=== PATIENT | male | born 1970 | race African-American/Black ===

== ENCOUNTER 2017-11-26 09:31 | Emergency (ER) | payer OTHER ==
[2017-11-26] MEDS ORDERED: NA CHLORIDE 0.9% 1,000 ML ONE ×3 (10:11→13:41)
[2017-11-26 10:22] LABS: Absolute Lymphocytes (CBC) 2.4 K/uL (0.7-4.9); Absolute Monocytes 0.5 K/uL (0.1-1.3); Absolute Neutrophil 4.6 K/uL (1.8-8.0); Basophils % 0.6 % (0-1.3); Eosinophils % 0.8 % (0-4.4); Hematocrit 45.8 % (39.6-49.0); Lymphocytes % 32.1 % (15.3-44.8); MCV 91.3 fL (80-100); MPV 9.3 fL (7.6-11.3); Monocytes % 6.6 % (3.3-12.3); RBC Red Blood Cell Count 5.02 M/uL (4.33-5.43)
[2017-11-26 10:27] LABS: Arterial Blood Carboxyhemoglob 0.6 % (0-1.5); Blood O2 Saturation 96.5 % (92-98.5)
[2017-11-26 10:34] LABS: Potassium 4.7 mEq/L (3.6-5.0)
[2017-11-26 10:41] LABS: Albumin 3.9 g/dL (3.2-5.5); Bilirubin Direct 0.1 mg/dL (0-0.2); Bilirubin Total 0.3 mg/dL (0.3-1.2); Protein, Total 7.8 g/dL (6.0-8.3)
--- NOTE | 2017-11-26 11:06 | RAD REPORT ---
EXAM DESCRIPTION: CT - Stone Protocol - 11/26/2017 10:37 am CLINICAL HISTORY: Abdominal pain. Right lower quadrant pain for 5 days COMPARISON: None. TECHNIQUE: Computed axial tomography of the abdomen pelvis was obtained without oral or IV contrast. Lack of IV and oral contrast limits evaluation of solid organs, bowel, and vessels. Coronal reformat mercedes images were obtained and reviewed. All CT scans are performed using dose optimization technique as appropriate and may include automated exposure control or mA/KV adjustment according to patient size. FINDINGS: A renal calculus is not seen. An ureteral calculus is not noted. A bladder calculus is not present. A 28 millimeter low to intermediate density mass extends off of the upper pole of the right kidney. A small left renal cyst is suspected Fatty infiltration liver is present. Mild gallbladder distention Spleen, pancreas and adrenals appear grossly normal There is no evidence of diverticulitis. The appendix appears normal IMPRESSION: Negative for a genitourinary calculus 28 millimeter low to intermediate density mass extending off of the right kidney does not have CT cri teria for simple cyst. Ultrasound is recommended. Mild gallbladder distention. Ultrasound would be helpful
--- NOTE | 2017-11-26 12:18 | EDPHYS ---
Physician Documentation [facility] Name: Balaji Gleason Age: 47 yrs Sex: Male : 1970 Arrival Date: 11/26/2017 Time: 09:34 Bed 20 Private MD: ED Physician Pedro Rosado Historical: - Allergies: 11/26 09:37 Morphine; sv 09:37 Dilaudid; sv - PMHx: 09:37 Hypertension; Borderline DM; Depression; PE; High Cholesterol; GERD; sv - PSHx: 09:37 keloid to left ear; sv - Immunization history:: Adult Immunizations up to date. - Social history:: Smoking status: Patient/guardian denies using tobacco. - Ebola Screening: : No symptoms or risks identified at this time. Exam: 17:00 ECG was reviewed by the Attending Physician. Vital Signs: 09:38 BP 94 / 42; Pulse 57; Resp 16; Temp 98.5; Pulse Ox 93% on R/A; Weight 148.78 kg; Height sv 6 ft. 0 in. (182.88 cm); Pain 8/10; 10:16 BP 97 / 67; Pulse 53; Resp 20; Pulse Ox 96% on 2 lpm NC; mh5 11:45 BP 112 / 70; Pulse 58; Resp 18; Pulse Ox 99% on 2 lpm NC; em 13:16 BP 112 / 67; Pulse 49; Resp 16; Pulse Ox 98% on 2 lpm NC; Pain 0/10; em 14:15 BP 109 / 67; Pulse 52; Resp 16; Pulse Ox 97% on R/A; Pain 0/10; em 09:38 Body Mass Index 44.48 (148.78 kg, 182.88 cm) sv 09:38 Pt placed on O2 \T\ 2L per NC. O2 sat up to 96%. sv MDM: 09:57 Patient medically screened. 14:15 Data reviewed: vital signs, nurses notes. ED course: dr preston has seen and examined wants pt discharged. pt normotensive, encouraged to see pcp and use cpap machine at home. 11/26 10:02 Order name: Basic Metabolic Panel 11/26 10:02 Order name: CBC with Diff; Complete Time: 11:08 11/26 10:02 Order name: Hepatic Function 11/26 10:02 Order name: Lipase; Complete Time: 11:08 11/26 10:02 Order name: Urine Microscopic Only; Complete Time: 14:14 11/26 10:02 Order name: AMMONIA; Complete Time: 11:08 11/26 10:02 Order name: ABG; Complete Time: 11:08 11/26 10:02 Order name: Urine Drug Screen; Complete Time: 14:14 11/26 10:03 Order name: CT Stone Protocol; Complete Time: 11:08 11/26 10:03 Order name: Basic Metabolic Panel; Complete Time: 11:08 EDMS 11/26 10:03 Order name: Liver (Hepatic) Function; Complete Time: 11:08 EDMS 11/26 13:49 Order name: Urine Dipstick--Ancillary (enter results) em1 11/26 13:50 Order name: Urine Dipstick-Ancillary; Complete Time: 14:14 EDMS 11/26 10:02 Order name: IV Saline Lock; Complete Time: 10:14 11/26 10:02 Order name: Labs collected and sent; Complete Time: 10:14 11/26 10:02 Order name: Urine Dipstick-Ancillary (obtain specimen); Complete Time: 13:46 gs EC:00 Rate is 55 beats/min. Rhythm is regular. SC interval is normal. QRS interval is normal. gs QT interval is normal. T waves are Flattened. Clinical impression: NSR w/ Non-specific ST/T Changes. Interpreted by me. Administered Medications: 10:14 Drug: NS 0.9% 1000 ml Route: IV; Rate: 1 bolus; Site: right antecubital; ss 13:15 Follow up: IV Status: Completed infusion; IV Intake: 1000ml em 11:32 Drug: NS 0.9% 1000 ml Route: IV; Rate: 1 bolus; Site: right antecubital; ss 13:16 Follow up: IV Status: Completed infusion; IV Intake: 1000ml em 13:54 Drug: NS 0.9% 1000 ml Route: IV; Rate: 1 bolus; Site: right antecubital; em 14:57 Follow up: IV Status: Completed infusion; IV Intake: 1000ml em Disposition: 11/26/17 14:17 Discharged to Home. Impression: Lower abdominal pain, unspecified, Sleep apnea. - Condition is Stable. - Discharge Instructions: Abdominal Pain, Adult. - Medication Reconciliation Form, Thank You Letter, Antibiotic Education, Prescription Opioid Use, Work release form form. - Follow up: Private Physician; When: 1 - 2 days; Reason: Re-evaluation by your physician. Addendum: 11/30/2017 15:52 Addendum: CC: Flank Pain HPI:Onset 2 days ago worse persistent , located Right Flank g s Associated SS- nausea, weakness, very tired and sleepy. Nothing makes worse or better. Has had in past. PMH: reviewed and agree Soc- ROS-all reviewed and negative PE- gen-awake alert head - atraumatic, no mass Neck-supple no mass ENT- op moist no erythema CV-s gopal no murmur P- lungs clear no increase WOB gi- soft nontender + CVA tender Skin no rash Neuro - sleepy CN,motor,sensory intact and normal DDX-stone, pyleo, sleep apnea, medication reaction, encephalopathy. much better seen by medicine will discharge instead of admit pt stable. Signatures: Dispatcher [employer] Diana Tavarez RN RN sv Jose Gould, ELECTRONIC TESTER ELECTRONIC TESTER Bhargavi Martinez RN RN ss Starr, Gregory, MD MD Corrections: (The following items were deleted from the chart) 11/26 14:15 12:17 Hospitalization Ordered by Eloina Preston MD for Inpatient Admission. Preliminary gs diagnosis is Hypotension due to drugs; Sleep apnea, unspecified. Bed requested for Telemetry/MedSurg (Inpatient). Status is Inpatient Admission. Condition is Stable. Problem is new. Symptoms have improved. UTI on Admission? No. gs 15:03 14:17 11/26/2017 14:17 Discharged to Home. Impression: Lower abdominal pain, em unspecified; Sleep apnea. Condition is Stable. Forms are Medication Reconciliation Form, Thank You Letter, Antibiotic Education, Prescription Opioid Use. Follow up: Private Physician; When: 1 - 2 days; Reason: Re-evaluation by your physician. gs
--- NOTE | 2017-11-26 12:18 | ER ---
Nurse's Notes [facility] Name: Balaji Gleason Age: 47 yrs Sex: Male : 1970 Arrival Date: 11/26/2017 Time: 09:34 Bed 20 Private MD: Diagnosis: Lower abdominal pain, unspecified;Sleep apnea Presentation: 11/26 09:35 Presenting complaint: Patient states: RLQ pain, n/v, diaphoretic started 5 days ago. sv Was seen in [place] [facility], CT, labs and medication given. Pt appears drowsy. Transition of care: patient was not received from another setting of care. Onset of symptoms was November 21, 2017. Risk Assessment: Do you want to hurt yourself or someone else? Patient reports no desire to harm self or others. Care prior to arrival: None. 09:35 Method Of Arrival: Wheelchair sv 09:35 Acuity: SHAGGY 2 sv 13:14 Initial Sepsis Screen: Does the patient meet any 2 criteria? No. Patient's initial em sepsis screen is negative. Does the patient have a suspected source of infection? No. Patient's initial sepsis screen is negative. Historical: - Allergies: 09:37 Morphine; sv 09:37 Dilaudid; sv - PMHx: 09:37 Hypertension; Borderline DM; Depression; PE; High Cholesterol; GERD; sv - PSHx: 09:37 keloid to left ear; sv - Immunization history:: Adult Immunizations up to date. - Social history:: Smoking status: Patient/guardian denies using tobacco. - Ebola Screening: : No symptoms or risks identified at this time. Screenin:15 Abuse screen: Denies threats or abuse. Denies injuries from another. Nutritional ss screening: No deficits noted. Tuberculosis screening: Never had TB. Fall Risk No fall in past 12 months (0 pts). Secondary diagnosis (15 points) fatigue. IV access (20 points). Gait- Normal/Bed Rest/Wheelchair (0 pts) Mental Status- Oriented to own ability (0 pts). Assessment: 10:15 General: Appears comfortable, drowsy. Behavior is cooperative, quiet, Reports fatigue ss for x 5 days. . Denies fever, chills, Seen for similar symptoms at [facility] 5 days ago, and was discharged home with unspecified abd pain. . Pain: Complains of pain in right lower quadrant Pain currently is 8 out of 10 on a pain scale. Quality of pain is described as tender, Pain began 5 days ago Is intermittent, Aggravated by increased activity, repositioning. Neuro: Level of Consciousness is awake, obeys commands, drowsy. Cardiovascular: Capillary refill < 3 seconds is brisk in bilateral fingers Patient's skin is warm and dry. Pulses are palpable in right radial artery, right dorsalis pedis artery, left radial artery and left dorsalis pedis artery Edema is absent. Rhythm is sinus bradycardia. Respiratory: Airway is patent Trachea midline Respiratory effort is even, unlabored, Respiratory pattern is regular, symmetrical, Breath sounds are clear bilaterally. GI: Reports lower abdominal pain, Patient currently denies bloody stool, diarrhea, nausea, vomiting. : Reports urinary frequency, Denies burning with urination, inability to void. EENT: Nares are clear Oral mucosa is moist. Derm: Skin is intact, is healthy with good turgor, Skin is dry, Skin is pink, warm \T\ dry. normal. Musculoskeletal: Circulation, motion, and sensation intact. Capillary refill < 3 seconds, is brisk, in bilateral fingers. Range of motion: intact in all extremities, Swelling absent. 10:58 Reassessment: Patient appears in no apparent distress at this time. family and friends ss at bedside. Pt has been to CT scan, awaiting results. 12:36 Reassessment: Dr. Garnett at bedside, updating patient on POC. ss 13:14 Reassessment: Patient appears in no apparent distress at this time. Patient and/or em family updated on plan of care and expected duration. Pain level reassessed. Patient is alert, oriented x 3, equal unlabored respirations, skin warm/dry/pink. 14:15 Reassessment: Patient appears in no apparent distress at this time. Patient and/or em family updated on plan of care and expected duration. Pain level reassessed. Patient is alert, oriented x 3, equal unlabored respirations, skin warm/dry/pink. Patient denies pain at this time. Patient states feeling better. Vital Signs: 09:38 BP 94 / 42; Pulse 57; Resp 16; Temp 98.5; Pulse Ox 93% on R/A; Weight 148.78 kg; Height sv 6 ft. 0 in. (182.88 cm); Pain 8/10; 10:16 BP 97 / 67; Pulse 53; Resp 20; Pulse Ox 96% on 2 lpm NC; mh5 11:45 BP 112 / 70; Pulse 58; Resp 18; Pulse Ox 99% on 2 lpm NC; em 13:16 BP 112 / 67; Pulse 49; Resp 16; Pulse Ox 98% on 2 lpm NC; Pain 0/10; em 14:15 BP 109 / 67; Pulse 52; Resp 16; Pulse Ox 97% on R/A; Pain 0/10; em 09:38 Body Mass Index 44.48 (148.78 kg, 182.88 cm) sv 09:38 Pt placed on O2 \T\ 2L per NC. O2 sat up to 96%. sv ED Course: 09:34 Patient arrived in ED. sb2 09:36 Triage completed. sv 09:40 Arm band placed on right wrist. Patient placed in an exam room, on a stretcher, on sv oxygen. 09:47 Pedro Rosado MD is Attending Physician. gs 09:59 EKG done, by ED staff, reviewed by Pedro Rosado MD. mh5 10:01 Patient has correct armband on for positive identification. Placed in gown. Bed in low mh5 position. Call light in reach. Side rails up X 1. Adult w/ patient. Warm blanket given. phototypesetting equipment monitor on. Pulse ox on. NIBP on. 10:06 Inserted saline lock: 20 gauge in right antecubital area, using aseptic technique. ss Blood collected. 10:14 Jose Gould LVN is Primary Nurse. em 10:37 CT completed. Patient moved to CT via stretcher. Patient moved back from CT. cw1 10:37 CT Stone Protocol In Process Unspecified. EDMS 12:16 Eloina Garnett MD is Hospitalizing Provider. gs 13:14 No provider procedures requiring assistance completed. em 13:51 Urine Drug Screen Sent. mh5 15:00 IV discontinued, intact, bleeding controlled, No redness/swelling at site. Pressure em dressing applied. Administered Medications: 10:14 Drug: NS 0.9% 1000 ml Route: IV; Rate: 1 bolus; Site: right antecubital; ss 13:15 Follow up: IV Status: Completed infusion; IV Intake: 1000ml em 11:32 Drug: NS 0.9% 1000 ml Route: IV; Rate: 1 bolus; Site: right antecubital; ss 13:16 Follow up: IV Status: Completed infusion; IV Intake: 1000ml em 13:54 Drug: NS 0.9% 1000 ml Route: IV; Rate: 1 bolus; Site: right antecubital; em 14:57 Follow up: IV Status: Completed infusion; IV Intake: 1000ml em Intake: 13:15 IV: 1000ml; Total: 1000ml. em 13:16 IV: 1000ml; Total: 2000ml. em 14:57 IV: 1000ml; Total: 3000ml. em Outcome: 12:17 Decision to Hospitalize by Provider. gs 14:17 Discharge ordered by MD. gs 15:00 Discharged to home ambulatory. em 15:00 Condition: good 15:00 Discharge instructions given to patient, Instructed on discharge instructions, follow up and referral plans. Demonstrated understanding of instructions, follow-up care. 15:03 Patient left the ED. em Signatures: Dispatcher [employer] Diana Tavarez RN RN Jose Gould, SOLAR INSTALLATION MANAGER SOLAR INSTALLATION MANAGER em Bhargavi Falcon RN RN ss Woodley, Crystal 1 Gracy Canas 5 Pedro Rosado MD MD gs Billeau, Sheri sb2 Corrections: (The following items were deleted from the chart) 09:38 09:35 Acuity: SHAGGY 3 sv sv 09:48 09:35 Presenting complaint: Patient states: RLQ pain, n/v, diaphoretic started 5 days sv ago. Was seen in [place] [facility], CT, labs and medication given. sv
[2017-11-26 13:50] LABS: Urine Blood NEGATIVE (NEG); Urine Glucose NEGATIVE (NEG); Urine Protein 2+ (NEG); Urine Specific Gravity >1.030 (1.005-1.030); Urine pH 5.5 (5.0-7.0)
[2017-11-26 13:51] LABS: Urine Bacteria <20 /HPF (NONE SEEN); Urine Culture Reflex Order NOT NEEDED; Urine Mucus 2+ /HPF (NONE SEEN); Urine RBC <5 /HPF (NONE SEEN)
[2017-11-26 13:52] LABS: Barbiturates NEGATIVE; Benzodiazepines NEGATIVE; Cocaine NEGATIVE; METHAMPHETAM NEGATIVE (NEGATIVE); Opiates NEGATIVE; Phencyclidine NEGATIVE; THC Cannibis NEGATIVE
--- NOTE | 2017-11-27 07:38 | EKG ---
Test Date: 2017-11-26 Test Time: 09:56:09 [place] Consultant: DANIELLE MEASUREMENT RESULTS: Intervals: Rate: 55 AR: 184 QRSD: 96 QT: 410 QTc: 392 [place]: P: 9 AR: 184 QRS: 31 T: 19 INTERPRETIVE STATEMENTS: Sinus bradycardia with occasional premature supraventricular complexes Nonspecific ST abnormality Abnormal ECG No previous ECG available for comparison Electronically Signed On 11-27-17 07:37:46 CDT by Romeo Patel
== END 2017-11-26 15:03 | disposition home or self-care (01) ==
LOC: ER 09:31 → ERHOLD 12:17 → UNDOADMIN 12:17
DX: R10.30 Lower abdominal pain, unspecified (principal); G47.30 Sleep apnea, unspecified; I10 Essential (primary) hypertension; Z88.5 Allergy status to narcotic agent; Z88.6 Allergy status to analgesic agent
CPT/HCPCS: 36415; 74176; 76377; 80048; 80076; 80307; 81003; 81015; 82140; 82805; 83690; 85025; 93005; 96360; 96361; 99285; J7030

== ENCOUNTER 2018-01-07 08:09 | Observation (INO) | payer OTHER ==
--- OUTSIDE RECORDS SUMMARY | 2018-01-07 08:11 | XMS REPORT | Clinical Summary ---
:1970 Author Organization [facility] Address [address] [place] [address] Care Team Providers Name Role Phone Luis Manuel Alfredo DO Primary Care Provider Allergies Active Allergy Reactions Severity Noted Date Comments Milk Diarrhea, GI Intolerance, Other (See Comments) Morphine 11/30/2015 Current Medications Prescription Sig. Disp. Refills Start Date End Date Status ALPRAZolam (XANAX) 01/05/2016 Active 0.25 MG tablet amlodipine-benazepri 01/20/2016 Active l (LOTREL) 10-40 mg per capsule carvedilol (COREG) 01/03/2016 Active 12.5 MG tablet clonIDINE (CATAPRES) 01/03/2016 Active 0.1 MG tablet FLUoxetine (PROzac) 01/22/2016 Active 40 MG capsule XARELTO tablet 01/20/2016 Active clonIDINE HCl 04/06/2016 Active (CATAPRES) 0.2 MG tablet nitroglycerin 05/14/2016 Active (NITROSTAT) 0.4 MG SL tablet traMADol (ULTRAM) 50 04/06/2016 Active mg tablet FOLIC ACID ORAL Take 2 mg by Active mouth. busPIRone (BUSPAR) Take 15 mg by Active 15 MG tablet mouth 3 (three) times a day. gemfibrozil (LOPID) Take 1 tablet 05/29/2017 Active 600 MG tablet by mouth daily. omeprazole Take 1 05/29/2017 Active (PriLOSEC) 20 MG capsule by capsule mouth daily. folic acid (FOLVITE) 06/28/2017 Active 1 MG tablet ATRIPLA 600-200-300 Take 1 tablet 90 tablet 3 09/01/2017 09/01/2018 Active mg per tablet by mouth nightly. AFLURIA [id number], 03/11/2016 06/06/2017 Discontinued PF, 45 mcg (15 mcg x 3)/0.5 mL syringe PNEUMOVAX 23 25 03/11/2016 06/06/2017 Discontinued mcg/0.5 mL syringe vaccine ATRIPLA 600-200-300 Take 1 tablet 90 tablet 3 08/10/2016 08/31/2017 Discontinued mg per tablet by mouth nightly. 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 06/06/2017 Hospital Encounter Gastroenterology Tripp Donahue MD 06/06/2017 Procedure Pass Gastroenterology 06/06/2017 Surgery Gastroenterology Godfrey, COLONOSCOPY Tripp Davis MD 06/05/2017 Anesthesia Event Gastroenterology Dagmar Grace FNP after 01/06/2017 Family History Medical History Relation Name Comments Cancer Maternal Grandfather Cancer Mother Relation Name Status Comments Maternal Grandfather Mother Social History Tobacco Use Types Packs/Day Years Used Date Never Smoker Smokeless Tobacco: Never Used Alcohol Use Drinks/Week oz/Week Comments Yes OCCASIONAL Sex Assigned at Date Recorded Not on file Last Filed Vital Signs Vital Sign Reading Time Taken Blood Pressure 138/72 07/18/2017 10:44 AM [employer]ALENT MANAGER Pulse 64 07/18/2017 10:44 AM [employer] TALENT MANAGER Temperature 36.1 C (97 F) 07/18/2017 10:44 AM HUMAN [employer]OURCES TALENT MANAGER Respiratory Rate 14 06/06/2017 9:58 AM HUM[employer]OURCES TALENT MANAGER Oxygen Saturation 97% 07/18/2017 10:44 AM HUMAN [employer]OURCES TALENT MANAGER Inhaled Oxygen Concentration - - Weight 146 kg (322 lb) 07/18/2017 10:44 AM HUM[employer]OURCES TALENT MANAGER Height 185.4 cm (6' 1") 06/06/2017 6:43 AM HUM[employer]OURCES TALENT MANAGER Body Mass Index 42.48 07/18/2017 10:44 AM HUMAN [employer]OURCES TALENT MANAGER Plan of Treatment Date Type Specialty Care Team Description 01/16/2018 Office Visit Infectious Diseases Josefa Uribe MD [address] [place] [address] Health Maintenance Due Date Last Done Comments DIABETIC FOOT EXAM 1982 DIABETIC RETINAL EYE EXAM 1982 INFLUENZA VACCINE 01/24/2018 Procedures Procedure Name Priority Date/Time Associated Diagnosis Comments HELPER T-LYMPHOCYTE Routine 12/28/2017 12:48 Results for this CD4 PM CDT procedure are in the results section. HIV 1 RNA, Routine 12/28/2017 12:48 Human immunodeficiency Results for this QUANTITATIVE REAL PM CDT virus I infection procedure are in TIME PCR skilled nursing use of drug the results section. 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 COMPREHENSIVE Routine 12/28/2017 12:48 Human immunodeficiency Results for this METABOLIC PANEL PM CDT virus I infection procedure are in skilled nursing use of drug the results section. HIV 1 RNA, Routine 08/21/2017 10:58 Human immunodeficiency Results for this QUANTITATIVE REAL AM HUMAN [employer]OURCES TALENT MANAGER virus I infection procedure are in TIME PCR the results section. HELPER T-LYMPHOCYTE Routine 07/05/2017 12:00 Results for this CD4 AM HUM[employer] TALENT MANAGER procedure are in the results section. 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 COLONOSCOPY 06/06/2017 8:30 Colon cancer screening AM H[employer] TALENT MANAGER ECG 12-LEAD STAT 06/06/2017 7:26 Results for this AM HUM[employer]OURCES TALENT MANAGER procedure are in the results section. POC GLUCOSE Routine 06/06/2017 6:54 Results for this AM HUM[employer] TALENT MANAGER procedure are in the results section. after 01/06/2017 Results [place] T-Lymphocyte CD4 (12/28/2017 12:48 PM)Only the most recent of2 resultswithin the time period is included. CD4 absolute count 826 359 - 1,519 /uL [facility] CD4% 30.6 (L) 30.8 - 58.5 % [facility] WBC 6.5 3.4 - 10.8 x10E3/uL [facility] RBC 4.98 4.14 - 5.80 x10E6/uL [facility] HGB 14.1 13.0 - 17.7 g/dL [facility] HCT 46.7 37.5 - 51.0 % [facility] MCV 94 79 - 97 fL [facility] MCH 28.3 26.6 - 33.0 pg [facility] MCHC 30.2 (L) 31.5 - 35.7 g/dL [facility] RDW 13.4 12.3 - 15.4 % [facility] Platelet count 222 150 - 379 x10E3/uL [facility] Neutrophils 52 Not Estab. % [facility] Lymphocytes 41 Not Estab. % [facility] Monocytes 6 Not Estab. % [facility] Eosinophils 1 Not Estab. % [facility] Basophils 0 Not Estab. % [facility] Neutrophils, absolute 3.4 1.4 - 7.0 x10E3/uL [facility] Lymphocytes, absolute 2.7 0.7 - 3.1 x10E3/uL [facility] Monocytes, absolute 0.4 0.1 - 0.9 x10E3/uL [facility] Eosinophils, absolute 0.1 0.0 - 0.4 x10E3/uL [facility] Basophils, absolute 0.0 0.0 - 0.2 x10E3/uL [facility] Immature granulocytes 0 Not Estab. % [facility] Immature grans (abs) 0.0 0.0 - 0.1 x10E3/uL [facility] Narrative Performed At Performed at: - [facility] [address] [facility], [id number] Supervisor [employer]intering Plant: Christiano Brothers MD, Phone:[phone] Performing Organization Address City/State/Zipcode Phone Number [facility] HIV 1 RNA, QUANTITATIVE REAL TIME PCR (12/28/2017 12:48 PM)Only the most recent of3 resultswithin the time period is included. HIV-1 RNA by PCR, Qn <20 copies/mL [facility] Comment: HIV-1 RNA not detected The reportable range for this assay is 20 to 10,000,000 copies HIV-1 RNA/mL. HIV-1 RNA viral load log CANCELED [id number]/mL [facility] Comment: Unable to calculate result since non-numeric result obtained for component test. Result canceled by the ancillary Narrative Performed At Performed at:01 - [facility] [address] [place], [id number] Supervisor [employer]: Sahil Silvestre MD, Phone:[phone] Performing Organization Address [place] [place] Number [facility] Lipid panel (12/28/2017 12:48 PM)Only the most recent of2 resultswithin the time period is included. Cholesterol 143 100 - 199 mg/dL [facility] Triglycerides 55 0 - 149 mg/dL [facility] HDL cholesterol 18 (L) >39 mg/dL [facility] VLDL cholesterol mohan 11 5 - 40 mg/dL [facility] LDL cholesterol calculated 114 (H) 0 - 99 mg/dL [facility] Non-HDL cholesterol 125 0 - 129 mg/dL [facility] Specimen Blood Narrative Performed At Performed at:01 - [facility] [address] [place], [id number] Supervisor [employer]intering Plant: Christiano Brothers MD, Phone:[phone] Performing Organization Address [facility] [place] Phone Number [facility] Comprehensive metabolic panel (12/28/2017 12:48 PM)Only the most recent of2 resultswithin the time period is included. Glucose 93 65 - 99 mg/dL [facility] BUN, whole blood 12 6 - 24 mg/dL [facility] Creatinine 1.01 0.76 - 1.27 mg/dL [facility] EGFR Non-Afr. Chinese 89 >59 mL/min/1.73 [facility] EGFR 103 >59 mL/min/1.73 [facility] BUN/creatinine ratio 12 9 - 20 [facility] Sodium 143 134 - 144 mmol/L [facility] Potassium 4.2 3.5 - 5.2 mmol/L [facility] Chloride 105 96 - 106 mmol/L [facility] CO2 23Comment: 20 - 29 mmol/L [facility] Please note reference interval change Calcium 9.3 8.7 - 10.2 mg/dL [facility] Protein 7.7 6.0 - 8.5 g/dL [facility] Albumin, S 4.5 3.5 - 5.5 g/dL [facility] Globulin, total 3.2 1.5 - 4.5 g/dL [facility] Albumin/globulin ratio 1.4 1.2 - 2.2 [facility] Total bilirubin 0.2 0.0 - 1.2 mg/dL [facility] Alkaline phosphatase 88 39 - 117 IU/L [facility] AST 22 0 - 40 IU/L [facility] ALT 23 0 - 44 IU/L [facility] Specimen Blood Narrative Performed At Performed at:01 - [facility] [address] [place], [id number] Supervisor [employer]intering Plant: Christiano Brothers MD, Phone:[phone] Performing Organization Address [facility] Phone Number [facility] ECG 12 lead (06/06/2017 7:26 AM) Ventricular rate 63 [facility] Atrial rate 63 [facility] OH interval 168 [facility] QRSD interval 86 [facility] QT interval 432 [facility] QTC interval 442 [facility] P axis 1 32 [facility] QRS axis 1 40 [facility] T wave axis 68 [facility] EKG impression Sinus rhythm with occasional premature ventricular complexes- RSR' or QR pattern in V1 suggests right ventricular conduction delay- Nonspecific ST and T wave abnormality-Abnormal ECG-No previous ECGs avai [facility] MUSE lable- Performing Organization Address City/[facility] Phone Number [facility] MUSE [address] [place] [address] POC glucose (06/06/2017 6:54 AM) POC glucose 84 65 - 99 mg/dL [facility] DEPARTMENT OF PATHOLOGY Comment: AND GENOMIC MEDICINE Meter ID: [id number] [employer] Specialist: Maryann Aleman Performing Organization Address City/State/Zipcode Phone Number [facility] DEPARTMENT OF PATHOLOGY [address] [place] [address] AND GENOMIC MEDICINE after 01/06/2017 Insurance Payer Benefit Plan / Group Subscriber ID Type Phone Address [facility] CHOICE/CHOICE + xxxxxxxxx HMO/PPO AND [phone] [place] [address]
[2018-01-07] MEDS ORDERED: ASPIRIN 81 MG CHEWABLE TABLET ONE (08:40)
[2018-01-07] MEDS ORDERED: ONDANSETRON 4 MG/2 ML VIAL ONE ×2 (08:40→09:48)
[2018-01-07 08:42] LABS: Absolute Lymphocytes (CBC) 3.1 K/uL (0.7-4.9); Absolute Monocytes 0.6 K/uL (0.1-1.3); Basophils % 0.6 % (0-1.3); Eosinophils % 1.2 % (0-4.4); Hematocrit 44.2 % (39.6-49.0); Lymphocytes % 34.5 % (15.3-44.8); MCH 29.4 pg (27.0-35.0); MCV 91.1 fL (80-100); MPV 8.9 fL (7.6-11.3); Monocytes % 6.9 % (3.3-12.3); RBC Red Blood Cell Count 4.85 M/uL (4.33-5.43)
[2018-01-07] MEDS ORDERED: IBUPROFEN 400 MG TAB ONE (08:45)
[2018-01-07 08:48] LABS: Protime INR 1.07
[2018-01-07 09:07] LABS: ALT/SGPT 31 U/L (12-78); AST/SGOT 21 U/L (15-37); Albumin 3.7 g/dL (3.4-5.0); Alkaline Phosphatase 97 U/L (45-117); BUN Blood Urea Nitrogen 17 mg/dL (7-18); Bicarbonate 29 mmol/L (21-32); Bilirubin Direct < 0.1 mg/dL (0-0.2); Bilirubin Total 0.1 mg/dL (0.2-1.0); CKMB Creatine Kinase MB 4.6 ng/mL (0.3-3.6); Glucose Level 143 mg/dL (74-106); Magnesium 2.1 mg/dL (1.8-2.4); NT PRO-BNP 50 pg/mL (<125); Potassium 3.6 mmol/L (3.5-5.1); Protein, Total 8.3 g/dL (6.4-8.2); Sodium Level 143 mmol/L (136-145)
[2018-01-07] MEDS ORDERED: KETOROLAC 30 MG/ML INJ ONE (09:48)
--- NOTE | 2018-01-07 09:58 | ER ---
Nurse's Notes [facility] Name: Balaji Elam Age: 47 yrs Sex: Male : 1970 Arrival Date: 01/07/2018 Time: 08:11 Bed 4 Private MD: Diagnosis: Chest pain, unspecified Presentation: 01/07 08:14 Presenting complaint: Patient states: chest tightness and shortness of breath that ss began when patient got off of work yesterday. Transition of care: patient was not received from another setting of care. Onset of symptoms was January 06, 2018. Risk Assessment: Do you want to hurt yourself or someone else? Patient reports no desire to harm self or others. Initial Sepsis Screen: Does the patient meet any 2 criteria? RR > 20 per min. Does the patient have a suspected source of infection? No. Patient's initial sepsis screen is negative. Care prior to arrival: None. 08:14 Method Of Arrival: Ambulatory 08:14 Acuity: SHAGGY 3 ss Historical: - Allergies: 08:16 Dilaudid; ss 08:16 Morphine; ss - Home Meds: 10:55 tramadol 50 mg Oral tab 1 tab every 6 hours [Active]; Xarelto 20 mg oral tab 1 tab once ph daily [Active]; fluoxetine 40 mg Oral cap 1 cap once daily [Active]; clonidine HCl 0.2 mg Oral tab 1 tab 2 times per day [Active]; gemfibrozil 600 mg Oral tab 1 tab 2 times per day [Active]; Lotrel 10-40 mg Oral cap 1 cap once daily [Active]; carvedilol 12.5 mg oral tab 1 tab 2 times per day [Active]; omeprazole 20 mg Oral cpDR 1 cap once daily [Active]; ziprasidone HCl 40 mg oral cap 1 cap nightly [Active]; alprazolam 0.25 mg Oral tab 1 tab nightly [Active]; folic acid 2mg Oral tab [Active]; buspirone 15 mg Oral tab 1 tab three times a day [Active]; - PMHx: 08:16 borderline DM; Depression; GERD; High Cholesterol; Hypertension; PE; ss - PSHx: 08:16 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 - Social history:: Smoking status: Patient uses tobacco products, "I vape for the taste, but not for nicotine" , Patient/guardian denies using alcohol, street drugs, The patient lives with family, . - Ebola Screening: : Patient denies exposure to infectious person Patient denies travel to an Ebola-affected area in the 21 days before illness onset. - Family history:: not pertinent. Screenin:48 Abuse screen: Denies threats or abuse. Denies injuries from another. Nutritional ph screening: No deficits noted. Tuberculosis screening: No symptoms or risk factors identified. Fall Risk None identified. Assessment: 08:50 General: Appears in no apparent distress. uncomfortable, obese, well groomed, Behavior ph is cooperative, appropriate for age, anxious, Denies fever, feeling ill. Pain: Complains of pain in mid-sternal area Pain does not radiate. Pain currently is 6 out of 10 on a pain scale. Quality of pain is described as pressure, Pain began "last night". Neuro: Level of Consciousness is awake, alert, obeys commands, Oriented to person, place, time, situation, Reports headache frontal area, Denies weakness dizziness. Cardiovascular: Reports chest pain, nausea, shortness of breath, Denies palpitations, syncope, vomiting, Capillary refill < 3 seconds in bilateral fingers Patient's skin is warm and dry. Rhythm is sinus rhythm with unifocal PVCs Chest pain quality is pressure, is located in substernal area. Respiratory: Reports shortness of breath at rest Airway is patent Respiratory effort is even, unlabored, Respiratory pattern is tachypnea Breath sounds are clear bilaterally. Denies cough. GI: Reports nausea, Patient currently denies abdominal pain, vomiting. Derm: Skin is intact, is healthy with good turgor, Skin is pink, warm \\T\\ dry. Musculoskeletal: Circulation, motion, and sensation intact. Range of motion: intact in all extremities. 09:45 Reassessment: Patient appears in no apparent distress at this time. Patient and/or ph family updated on plan of care and expected duration. Pain level reassessed. Patient is alert, oriented x 3, equal unlabored respirations, skin warm/dry/pink. 10:43 Reassessment: Patient appears in no apparent distress at this time. Patient and/or ph family updated on plan of care and expected duration. Pain level reassessed. Patient is alert, oriented x 3, equal unlabored respirations, skin warm/dry/pink. Pt resting quietly, awaiting room assignment, VSS. Vital Signs: 08:16 BP 170 / 114; Pulse 77; Resp 21; Temp 97.9(O); Pulse Ox 99% on R/A; Weight 142.43 kg; ss Height 6 ft. 0 in. (182.88 cm); Pain 6/10; 08:48 BP 166 / 101; Pulse 71; Resp 18; Pulse Ox 96% on R/A; Pain 6/10; ph 09:22 BP 148 / 93; Pulse 69; Resp 24; Pulse Ox 100% ; sv 10:40 BP 129 / 90; Pulse 59; Resp 18; Pulse Ox 98% on R/A; ph 08:16 Body Mass Index 42.59 (142.43 kg, 182.88 cm) ED Course: 08:11 Patient arrived in ED. ss 08:12 Shania Bradley MD is Attending Physician. ma2 08:16 Triage completed. ss 08:16 Arm band placed on right wrist. ss 08:30 Initial lab(s) drawn, by ok, sent to lab. Inserted saline lock: 22 gauge in right ph antecubital area, using aseptic technique. Blood collected. 08:34 Micaela Negro, RN is Primary Nurse. ph 08:55 Patient has correct armband on for positive identification. Placed in gown. Bed in low ph position. Call light in reach. Side rails up X 1. conveyor monitor on. Pulse ox on. NIBP on. Warm blanket given. 09:01 XRAY Chest (1 view) In Process Unspecified. EDMS 09:53 No provider procedures requiring assistance completed. ph 09:58 Eloina Garnett MD is Hospitalizing Provider. ma2 15:57 Patient admitted, IV remains in place. ph Administered Medications: 08:46 Drug: Aspirin 325 mg Route: PO; ph 10:42 Follow up: Response: No adverse reaction ph 08:47 Drug: Zofran 4 mg Route: IVP; Site: right antecubital; ph 10:41 Follow up: Response: No adverse reaction ph 08:47 Drug: Motrin 800 mg Route: PO; ph 10:41 Follow up: Response: No adverse reaction ph 09:48 Drug: Zofran 4 mg Route: IVP; Site: right antecubital; sv 10:41 Follow up: Response: No adverse reaction ph 09:51 CANCELLED (pt allergic): morphine 4 mg IVP once sv 09:51 Drug: TORadol 30 mg Route: IVP; Site: right antecubital; sv 10:41 Follow up: Response: No adverse reaction ph Outcome: 09:58 Decision to Hospitalize by Provider. ma2 11:49 Patient left the ED. sv 11:49 Admitted to Tele accompanied by tech, via wheelchair, with chart. ph 11:49 Condition: stable 11:49 Instructed on the need for admit. Signatures: Dispatcher [employer] Diana Tavarez RN RN sv Smirch, Shelby, RN RN ss Hall, Patricia, RN RN ph Alzahri, Mohammad, MD MD tn2
--- NOTE | 2018-01-07 09:58 | EDPHYS ---
Physician Documentation [facility] Name: Balaji Elam Age: 47 yrs Sex: Male : 1970 Arrival Date: 01/07/2018 Time: 08:11 Bed 4 Private MD: ED Physician Shania Bradley HPI: 01/07 08:22 This 47 yrs old Black Male presents to ER via Ambulatory with complaints of Shortness ma2 Of Breath, Chest Tightness. 08:22 The patient has shortness of breath at rest. Onset: The symptoms/episode began/occurred ma2 gradually, 12 hour(s) ago. Duration: The symptoms are continuous. The patient's shortness of breath has no apparent modifying factors. Associated signs and symptoms: Pertinent negatives:. Severity of symptoms: At their worst the symptoms were moderate. The patient has experienced similar episodes in the past. hx of PE on zarelto, has HTN, DM, HLD here with chest pain that is constant for 12 hrs, has had this pain before, had negative stress test > 5 yrs back. Historical: - Allergies: 08:16 Dilaudid; ss 08:16 Morphine; ss - Home Meds: 10:55 tramadol 50 mg Oral tab 1 tab every 6 hours [Active]; Xarelto 20 mg oral tab 1 tab once ph daily [Active]; fluoxetine 40 mg Oral cap 1 cap once daily [Active]; clonidine HCl 0.2 mg Oral tab 1 tab 2 times per day [Active]; gemfibrozil 600 mg Oral tab 1 tab 2 times per day [Active]; Lotrel 10-40 mg Oral cap 1 cap once daily [Active]; carvedilol 12.5 mg oral tab 1 tab 2 times per day [Active]; omeprazole 20 mg Oral cpDR 1 cap once daily [Active]; ziprasidone HCl 40 mg oral cap 1 cap nightly [Active]; alprazolam 0.25 mg Oral tab 1 tab nightly [Active]; folic acid 2mg Oral tab [Active]; buspirone 15 mg Oral tab 1 tab three times a day [Active]; - PMHx: 08:16 borderline DM; Depression; GERD; High Cholesterol; Hypertension; PE; ss - PSHx: 08:16 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 - Social history:: Smoking status: Patient uses tobacco products, "I vape for the taste, but not for nicotine" , Patient/guardian denies using alcohol, street drugs, The patient lives with family, . - Ebola Screening: : Patient denies exposure to infectious person Patient denies travel to an Ebola-affected area in the 21 days before illness onset. - Family history:: not pertinent. ROS: 08:22 Constitutional: Negative for fever, chills, and weight loss, Eyes: Negative for injury, ma2 pain, redness, and discharge. 08:22 Cardiovascular: Positive for chest pain. 08:22 All other systems are negative. Exam: 08:22 Constitutional: This is a well developed, well nourished patient who is awake, alert, ma2 and in no acute distress. Head/Face: Normocephalic, atraumatic. Chest/axilla: Normal chest wall appearance and motion. Nontender with no deformity. No lesions are appreciated. Cardiovascular: Regular rate and rhythm with a normal S1 and S2. No gallops, murmurs, or rubs. Normal PMI, no JVD. No pulse deficits. Respiratory: Lungs have equal breath sounds bilaterally, clear to auscultation and percussion. No rales, rhonchi or wheezes noted. No increased work of breathing, no retractions or nasal flaring. Abdomen/GI: Soft, non-tender, with normal bowel sounds. No distension or tympany. No guarding or rebound. No evidence of tenderness throughout. Vital Signs: 08:16 BP 170 / 114; Pulse 77; Resp 21; Temp 97.9(O); Pulse Ox 99% on R/A; Weight 142.43 kg; ss Height 6 ft. 0 in. (182.88 cm); Pain 6/10; 08:48 BP 166 / 101; Pulse 71; Resp 18; Pulse Ox 96% on R/A; Pain 6/10; ph 09:22 BP 148 / 93; Pulse 69; Resp 24; Pulse Ox 100% ; sv 10:40 BP 129 / 90; Pulse 59; Resp 18; Pulse Ox 98% on R/A; ph 08:16 Body Mass Index 42.59 (142.43 kg, 182.88 cm) MDM: 08:12 Patient medically screened. ma2 08:22 Differential diagnosis: Anxiety Reaction asthma, Myocardial Infarction pneumonia, ma2 Pneumothorax Pulmonary Embolism. Data reviewed: vital signs, nurses notes, EMS record, EKG. Data reviewed: EKG with no STEMI, has RBBB sinus rhythm no st changes, he was advised to see his health plan manager for stress test and he did not. other likely DD includes PE, given he is on xarelto and having respiratory distress, with spo2 of 100 on RA willl not do PE diagnostic workup in ER as it will not change ER management . Counseling: I had a detailed discussion with the patient and/or guardian regarding: the historical points, exam findings, and any diagnostic results supporting the discharge/admit diagnosis, the presence of at least one elevated blood pressure reading (>120/80) during this emergency department visit, the need for further work-up and treatment in the hospital. 09:53 Test interpretation: by ED physician or midlevel provider: ECG, plain radiologic ma2 studies. Response to treatment: the patient's symptoms have mildly improved after treatment. Admission orders: after a detailed discussion of the patient's condition and case, the admit orders are written by me. ED course: discussed with dr. preston . 01/07 08:22 Order name: Basic Metabolic Panel; Complete Time: 09:59 ma2 01/07 08:22 Order name: CBC with Diff; Complete Time: 08:49 ma01/07 08:22 Order name: Ckmb; Complete Time: 09:59 ma2 01/07 08:22 Order name: LFT's; Complete Time: 09:59 ma2 01/07 08:22 Order name: Magnesium; Complete Time: 09:59 ma2 01/07 08:22 Order name: NT PRO-BNP; Complete Time: 09:59 ma2 01/07 08:22 Order name: PT-INR; Complete Time: 09:07 2 01/07 08:22 Order name: Ptt, Activated; Complete Time: 09:07 01/07 08:22 Order name: Troponin (emerg Dept Use Only); Complete Time: 09: ma2 01/07 10:12 Order name: Urine Dipstick--Ancillary (enter results) 01/07 10:17 Order name: Basic Metabolic Panel [facility] 01/07 10:17 Order name: CBC with Automated Diff [facility] 01/07 10:17 Order name: Troponin I [facility] 01/07 10:17 Order name: Troponin I [facility] 01/07 08:22 Order name: XRAY Chest (1 view) ga2 01/07 08:22 Order name: EKG; Complete Time: 08:22 ma2 01/07 08:22 Order name: Cardiac monitoring; Complete Time: 08:35 ma2 01/07 08:22 Order name: EKG - Nurse/Tech; Complete Time: 08:35 ma2 01/07 10:17 Order name: Heart Healthy [facility] 01/07 10:17 Order name: EKG Electrocardiogram [facility] 01/07 10:17 Order name: EKG Electrocardiogram [facility] 01/07 10:17 Order name: EKG Electrocardiogram [facility] 01/07 10:17 Order name: Troponin I [facility] 01/07 10:17 Order name: Troponin I [facility] 01/07 08:22 Order name: IV Saline Lock; Complete Time: 08:35 ma2 01/07 08:22 Order name: Labs collected and sent; Complete Time: 08:35 ma2 01/07 08:22 Order name: O2 Per Protocol; Complete Time: 08:35 ma2 01/07 08:22 Order name: O2 Sat Monitoring; Complete Time: 08:35 ma2 01/07 08:22 Order name: Urine Dipstick-Ancillary (obtain specimen); Complete Time: 10:10 ma2 Administered Medications: 08:46 Drug: Aspirin 325 mg Route: PO; ph 10:42 Follow up: Response: No adverse reaction ph 08:47 Drug: Zofran 4 mg Route: IVP; Site: right antecubital; ph 10:41 Follow up: Response: No adverse reaction ph 08:47 Drug: Motrin 800 mg Route: PO; ph 10:41 Follow up: Response: No adverse reaction ph 09:48 Drug: Zofran 4 mg Route: IVP; Site: right antecubital; sv 10:41 Follow up: Response: No adverse reaction ph 09:51 CANCELLED (pt allergic): morphine 4 mg IVP once sv 09:51 Drug: TORadol 30 mg Route: IVP; Site: right antecubital; sv 10:41 Follow up: Response: No adverse reaction ph Disposition: 01/07/18 09:58 Hospitalization ordered by Eloina Preston for Observation. Preliminary diagnosis is Chest pain, unspecified. - Bed requested for Telemetry/MedSurg (observation). - Status is Observation. sv - Condition is Stable. - Problem is new. - Symptoms are unchanged. UTI on Admission? No Signatures: Dispatcher [employer] Diana Tavarez, RN RN Bhargavi Falcon, ASHLI RN Micaela Negro RN RN Shania Bradley MD MD [facility] Nandini Tsang Corrections: (The following items were deleted from the chart) 09:51 09:41 morphine 4 mg IVP once ordered. [facility] 10:55 09:58 Hospitalization Ordered by Eloina Preston MD for Observation. Preliminary eb diagnosis is Chest pain, unspecified. Bed requested for Telemetry/MedSurg (observation). Status is Observation. Condition is Stable. Problem is new. Symptoms are unchanged. UTI on Admission? No. ga2 11:49 10:55 01/07/2018 09:58 Hospitalization Ordered by Eloina Preston MD for Observation. sv Preliminary diagnosis is Chest pain, unspecified. Bed requested for Telemetry/MedSurg (observation). Status is Observation. Condition is Stable. Problem is new. Symptoms are unchanged. UTI on Admission? No. eb
[2018-01-07 11:01] LABS: Urine Blood NEGATIVE (NEG); Urine Glucose NEGATIVE (NEG); Urine Protein 2+ (NEG)
[2018-01-07] MEDS ORDERED: ACETAMINOPHEN 500 MG TAB PO PRN (11:37)
[2018-01-07] MEDS: INSULIN -REGULAR HUMAN 50 UNIT/0.5 ML ML SQ SCH ×3 (11:37→20:37)
[2018-01-07] MEDS ORDERED: ONDANSETRON 4 MG/2 ML VIAL IV PRN (11:37)
--- NOTE | 2018-01-07 12:25 | RAD REPORT ---
EXAM DESCRIPTION: Nila Single View01/07/2018 9:03 am CLINICAL HISTORY: Chest pain COMPARISON: none FINDINGS: The lungs appear clear of acute infiltrate. The heart is mildly enlarged IMPRESSION: No acute abnormalities displayed
[2018-01-07] MEDS ORDERED: TRAMADOL HCL 50 MG TAB PO PRN (12:50)
[2018-01-07] MEDS ORDERED: cloNIDine HCl 0.1 MG TAB PO PRN (12:50)
[2018-01-07] MEDS ORDERED: ALPRAZOLAM 0.25 MG TABLET PO PRN (12:50)
[2018-01-07] MEDS: BUSPIRONE HCL 15 MG TABLET PO SCH ×2 (14:00→20:43)
--- NOTE | 2018-01-07 14:25 | P.HP ---
Certification for Inpatient Patient admitted to: Observation With expected LOS: <2 Midnights Patient will require the following post-hospital care: None Practitioner: I am a practitioner with admitting privileges, knowledge of patient current condition, hospital course, and medical plan of care. Services: Services provided to patient in accordance with Admission requirements found in Title 42 Section 412.3 of the Code of Federal Regulations Patient History Date of Service: 01/07/18 Primary Care Provider: LeilaOT Reason for admission: Chest pain History of Present Illness: 47 hy/o M with h/o of Drug abuse, HIV, Vaping, HTN, HLP and PE who presented to the hospital for Chest Discomfort. Pt states [place] and started feeling like there was "elephant" sitting on his chest and got nauseous and came to the ER. Pt was seen in the ER 1 month ago for similar complains and was discharge home with diagnosis of panic attack and outpt f.u with Cardiology. He states he was doing well and did not followup with Cardiology. He also states that he is having a lot of anxiety lately and recently was started on Xanax at bedside in addition to his other anxiety Medication. Pt states he denies SOB, radiation of the pain, Dizziness or any other complains to offer. Pt states he vapes occasionally and drinks occasionally as well. No other complains to offer. Allergies milk Allergy (Severe, Verified 01/07/18 12:35) Nausea/Vomiting morphine Allergy (Severe, Verified 01/07/18 12:35) Itching/Hives/Rash Home Medications: ALPRAZolam [Xanax] 0.25 mg PO Q4H PRN 01/07/18 Amlodipine Besylate/Benazepril [Lotrel 10-40 mg Capsule] 1 each PO DAILY Buspirone HCl [Buspar] 15 mg PO TID 01/07/18 Carvedilol [Coreg] 12.5 mg PO BID 01/07/18 Clonidine HCl [Catapres*] 0.2 mg PO BID 01/07/18 Clonidine HCl [Catapres] 0.1 mg PO Q4H PRN 01/07/18 Fluoxetine HCl [Prozac] 40 mg PO DAILY 01/07/18 Folic Acid 2 mg PO DAILY 01/07/18 Gemfibrozil [Lopid] 600 mg PO BID 01/07/18 Omeprazole 20 mg PO DAILY 01/07/18 Rivaroxaban [Xarelto] 20 mg PO DAILY 01/07/18 Tramadol HCl [Ultram] 50 mg PO QID PRN 01/07/18 Ziprasidone HCl [Geodon*] 40 mg PO BEDTIME 01/07/18 - Past Medical/Surgical History Has patient received pneumonia vaccine in the past: Yes Diabetic: No -: HTN -: depression -: GERD -: HLD -: PE- 2001 - Social History Smoking Status: Never smoker Alcohol use: Yes CD- Drugs: No Caffeine use: Yes Place of Residence: Home Review of Systems General: As per HPI Physical Examination - Vital Signs Temperature: 97.9 F Blood Pressure: 129/90 Pulse: 59 Respirations: 18 - Physical Exam General: Alert, In no apparent distress HEENT: Atraumatic, PERRLA, Mucous membr. moist/pink, EOMI, Sclerae nonicteric Neck: Supple, 2+ carotid pulse no bruit, No LAD, Without JVD or thyroid abnormality Respiratory: Clear to auscultation bilaterally, Normal air movement Cardiovascular: Regular rate/rhythm, Normal S1 S2 Gastrointestinal: Normal bowel sounds, No tenderness Musculoskeletal: No tenderness Integumentary: No rashes Neurological: Normal gait, Normal speech, Normal strength at 5/5 x4 extr, Normal tone, Normal affect Lymphatics: No axilla or inguinal lymphadenopathy - Studies Laboratory Data (last 24 hrs) 01/07/18 08:30: PT 12.6 H, INR 1.07, APTT 29.4 01/07/18 08:30: WBC 8.8, Hgb 14.2, Hct 44.2, Plt Count 213 01/07/18 08:30: Sodium 143, Potassium 3.6, BUN 17, Creatinine 1.20, Glucose 143 H, Magnesium 2.1, Total Bilirubin 0.1 L, AST 21, ALT 31, Alkaline Phosphatase 97 Assessment and Plan - Problems (Diagnosis) (1) Chest pain Current Visit: Yes Status: Acute Plan: Chest pain most Likely 2.2 to Anxiety but will r/o ACS since pt is high risk with Smoking and IV drug abuse -Cardiology consulted. -ECHO, Stress test in AM -ACS medication - Statin, BB and Anticoagulation Qualifiers: Chest pain type: unspecified Qualified Code(s): R07.9 - Chest pain, unspecified (2) HIV (human immunodeficiency virus infection) Current Visit: Yes Status: Chronic Plan: Last HIV count < 20 and CD 4 count 856 on 12/28/17 -Restart home medication (3) HTN (hypertension) Current Visit: Yes Status: Chronic Plan: Uncontrolled due to Noncompliance with medication -Restart Home medication Qualifiers: Hypertension type: essential hypertension Qualified Code(s): I10 - Essential (primary) hypertension (4) Anxiety Current Visit: Yes Status: Chronic Plan: On Medication Will restart (5) Hyperlipidemia Current Visit: Yes Status: Chronic Plan: Lipid Panel WNL -Restart home medicaiton Qualifiers: Hyperlipidemia type: mixed hyperlipidemia Qualified Code(s): E78.2 - Mixed hyperlipidemia (6) Morbid obesity Current Visit: Yes Status: Chronic (7) Tobacco abuse Current Visit: Yes Status: Chronic (8) Pulmonary embolism Current Visit: Yes Status: Acute Plan: H/o of PE on Xarelto -Continue here Qualifiers: Pulmonary embolism type: other Chronicity: chronic Acute cor pulmonale presence: without acute cor pulmonale Qualified Code(s): I27.82 - Chronic pulmonary embolism Discharge Plan: Home Plan to discharge in: 48 Hours - Advance Directives Does patient have a Living Will: No Does patient have a Durable POA for Healthcare: No - Code Status/Comfort Care Code Status Assessed: Yes Critical Care: No
[2018-01-07] MEDS ORDERED: POTASSIUM CL SA 10 MEQ TAB PO ONE (16:00)
[2018-01-07] MEDS ORDERED: RIVAROXABAN 20 MG TABLET PO SCH (17:00)
[2018-01-07] MEDS: cloNIDine HCl 0.1 MG TAB PO SCH (20:43)
[2018-01-07] MEDS: GEMFIBROZIL 600 MG TAB PO SCH (20:43)
[2018-01-07] MEDS: CARVEDILOL 12.5 MG TAB PO SCH (20:44)
[2018-01-07] MEDS ORDERED: CLONIDINE HCL 0.2 MG PO SCH (21:00)
[2018-01-07] MEDS ORDERED: ZIPRASIDONE 20 MG CAP PO SCH (21:00)
[2018-01-07] MEDS ORDERED: ATORVASTATIN 40 MG TAB PO SCH (21:00)
[2018-01-08 05:20] LABS: Absolute Lymphocytes (CBC) 2.9 K/uL (0.7-4.9); Absolute Monocytes 0.6 K/uL (0.1-1.3); Basophils % 0.5 % (0-1.3); Eosinophils % 1.1 % (0-4.4); Hematocrit 41.9 % (39.6-49.0); Lymphocytes % 38.1 % (15.3-44.8); MCH 29.1 pg (27.0-35.0); MCV 91.6 fL (80-100); Monocytes % 7.7 % (3.3-12.3); RBC Red Blood Cell Count 4.57 M/uL (4.33-5.43)
[2018-01-08 05:43] LABS: Potassium 4.2 mmol/L (3.5-5.1)
[2018-01-08] MEDS ORDERED: METOPROLOL XL 25 MG TAB PO SCH (06:00)
[2018-01-08] MEDS: INSULIN -REGULAR HUMAN 50 UNIT/0.5 ML ML SQ SCH ×2 (07:30→11:21)
[2018-01-08] MEDS ORDERED: PANTOPRAZOLE 40MG TABLET PO SCH (07:30)
[2018-01-08] MEDS ORDERED: REGADENOSON 0.4 MG/5 ML SYR IV ONE (07:57)
--- NOTE | 2018-01-08 08:57 | EKG ---
Test Date: 2018-01-07 Test Time: 08:13:05 Crew Lead: NOMAN MEASUREMENT RESULTS: Intervals: Rate: 73 WV: 172 QRSD: 94 QT: 416 QTc: 458 [place]: P: 12 WV: 172 QRS: 22 T: 30 INTERPRETIVE STATEMENTS: Sinus rhythm with occasional premature ventricular complexes Possible Left atrial enlargement Nonspecific T wave abnormality Abnormal ECG No previous ECG available for comparison Electronically Signed On 01-08-18 08:56:43 CDT by Romeo Patel
[2018-01-08] MEDS ORDERED: TRAMADOL 37.5mg/APAP 325mg PER TAB PO SCH (09:00)
[2018-01-08] MEDS ORDERED: FOLIC ACID 1 MG TABLET PO SCH (09:00)
[2018-01-08] MEDS ORDERED: AMLODIPINE BESYLATE PO SCH (09:00)
[2018-01-08] MEDS ORDERED: ASPIRIN 81 MG CHEWABLE TABLET PO SCH (09:00)
[2018-01-08] MEDS ORDERED: BENAZEPRIL 20 MG TAB PO SCH (09:00)
[2018-01-08] MEDS: CARVEDILOL 12.5 MG TAB PO SCH (09:00)
[2018-01-08] MEDS ORDERED: BENAZEPRIL PO SCH (09:00)
[2018-01-08] MEDS ORDERED: FLUOXETINE 10 MG CAP PO SCH (09:00)
[2018-01-08] MEDS ORDERED: AMLODIPINE 10 MG TAB PO SCH (09:00)
[2018-01-08] MEDS ORDERED: TRAMADOL HCL 50 MG TAB PO SCH (09:00)
[2018-01-08] MEDS ORDERED: HOME MED 1 EA UNK (Omeprazole [Omeprazole] 20 MG) PO SCH (09:00)
[2018-01-08] MEDS ORDERED: TRAMADOL HCL 50 MG TAB PO PRN (09:00)
[2018-01-08] MEDS: GEMFIBROZIL 600 MG TAB PO SCH (10:14)
[2018-01-08] MEDS: cloNIDine HCl 0.1 MG TAB PO SCH (10:14)
[2018-01-08] MEDS: BUSPIRONE HCL 15 MG TABLET PO SCH ×2 (10:22→13:57)
--- NOTE | 2018-01-08 10:52 | RAD REPORT ---
EXAM DESCRIPTION: NM - Rest Stress Cardiac Imaging - 01/08/2018 10:24 am CLINICAL HISTORY: Chest pain COMPARISON: None. TECHNIQUE: The patient was administered 10.7 mCi of Tc 99m Sestamibi prior to resting SPECT imaging of the heart. The patient was then administered approximately 30 mCi of Tc 99m Sestamibi following ex ercise or pharmacologic stress. Multiplanar SPECT images were reviewed. FINDINGS: The end diastolic volume is 180 ml, the end systolic volume is 91 ml, and the ejection fra ction is 49 %. Physiologic distribution of the radiopharmaceutical through the myocardium is noted. No stress induce d ischemic defect is seen to suggest stress induced ischemia. No fixed defect is seen to suggest hibe rnating myocardium or scarred myocardium. IMPRESSION: No stress induced ischemia or other suspicious findings. End-diastolic volume is enlarged at 180 milliliters with a slightly below normal EF of 49%.
--- NOTE | 2018-01-08 11:40 | CON ---
Identification: A 47-year-old man. Chief Complaint: Chest pressure. History Of Present Illness: The patient had chest pressure for about an hour and a half yesterday, c entral chest, nonradiating, some dyspnea, came to the hospital, and since being here, his EKG is nons pecific, but not normal, but very similar to older EKGs we had, which shows PVCs and nonspecific T-wa ve flattening. No infarction, injury, or ischemia. All of his cardiac enzymes have been normal. Th e patient has never had myocardial infarction or stroke in the past. Social History: Uses no tobacco. Past Medical History: He has a history of hypertension, dyslipidemia, history of atrial fib. Past h istory is also significant for schizophrenia and positive HIV apparently. Medications: He is on rivaroxaban. Other medications are buspirone, folic acid, clonidine, alprazol am, ziprasidone, omeprazole, carvedilol, amlodipine, benazepril, gemfibrozil, tramadol, and fluoxetin e. Allergies: HE IS ALLERGIC TO MILK, MORPHINE, AND SOME TOPICAL ALLERGIES. Physical Examination: Vital Signs: Height 6 feet tall, 314 pounds. Alert, oriented, pleasant, not in distress. Lungs: Clear. Heart: Within normal limits. Abdomen: Soft. Extremities: normal. Impression: The patient is not having an acute coronary syndrome. A pharmacologic stress test is un [place], echo. If those are normal, he could be discharged for outpatient care. ELEUTERIO Voice ID: [id number] Report ID: [id number]
--- NOTE | 2018-01-08 12:24 | P.SSS ---
Patient History Date of Service: 01/08/18 Primary Care Provider: RICHARD Reason for admission: Chest pain History of Present Illness: 47 hy/o M with h/o of Drug abuse, HIV, Vaping, HTN, HLP and PE who presented to the hospital for Chest Discomfort. Pt states he was driving thru the custodial this AM and started feeling like there was "elephant" sitting on his chest and got nauseous and came to the ER. Pt was seen in the ER 1 month ago for similar complains and was discharge home with diagnosis of panic attack and outpt f.u with Cardiology. He states he was doing well and did not followup with Cardiology. He also states that he is having a lot of anxiety lately and recently was started on Xanax at bedside in addition to his other anxiety Medication. Pt states he denies SOB, radiation of the pain, Dizziness or any other complains to offer. Pt states he vapes occasionally and drinks occasionally as well. No other complains to offer. Allergies milk Allergy (Severe, Verified 01/07/18 12:35) Nausea/Vomiting morphine Allergy (Severe, Verified 01/07/18 12:35) Itching/Hives/Rash Home Medications: ALPRAZolam [Xanax*] 0.25 mg PO Q4H PRN 01/07/18 Amlodipine Besylate/Benazepril [Lotrel 10-40 mg Capsule] 1 each PO DAILY Buspirone HCl [Buspar*] 15 mg PO TID 01/07/18 Carvedilol [Coreg*] 12.5 mg PO BID 01/07/18 Clonidine HCl [Catapres*] 0.2 mg PO BID 01/07/18 Clonidine HCl [Catapres] 0.1 mg PO Q4H PRN 01/07/18 Fluoxetine HCl [Prozac*] 40 mg PO DAILY 01/07/18 Folic Acid 2 mg PO DAILY 01/07/18 Gemfibrozil [Lopid*] 600 mg PO BID 01/07/18 Omeprazole 20 mg PO DAILY 01/07/18 Rivaroxaban [Xarelto*] 20 mg PO DAILY 01/07/18 Tramadol HCl [Ultram] 50 mg PO QID PRN 01/07/18 Ziprasidone HCl [Geodon*] 40 mg PO BEDTIME 01/07/18 - Past Medical/Surgical History Has patient received pneumonia vaccine in the past: Yes Diabetic: No -: HTN -: depression -: GERD -: HLD -: PE- 2001 - Social History Smoking Status: Never smoker Alcohol use: Yes CD- Drugs: No Caffeine use: Yes Place of Residence: Home Review of Systems General: As per HPI Physical Examination - Vital Signs Temperature: 97.0 F Blood Pressure: 153/93 Pulse: 62 Respirations: 18 Pulse Ox (%): 97 - Physical Exam General: Alert, In no apparent distress HEENT: Atraumatic, PERRLA, Mucous membr. moist/pink, EOMI, Sclerae nonicteric Neck: Supple, 2+ carotid pulse no bruit, No LAD, Without JVD or thyroid abnormality Respiratory: Clear to auscultation bilaterally, Normal air movement Cardiovascular: Regular rate/rhythm, Normal S1 S2 Gastrointestinal: Normal bowel sounds, No tenderness Musculoskeletal: No tenderness Integumentary: No rashes Neurological: Normal gait, Normal speech, Normal strength at 5/5 x4 extr, Normal tone, Normal affect Lymphatics: No axilla or inguinal lymphadenopathy - Diagnosis (Problem(s)) (1) Chest pain Onset Date: 01/08/18 Current Visit: Yes Status: Acute Plan: Chest pain most Likely 2.2 to Anxiety. ACS ruled out -Cardiology consulted. -ECHO, Stress test WNL Qualifiers: Chest pain type: unspecified Qualified Code(s): R07.9 - Chest pain, unspecified (2) HIV (human immunodeficiency virus infection) Onset Date: 01/08/18 Current Visit: Yes Status: Chronic Plan: Last HIV count < 20 and CD 4 count 856 on 12/28/17 (3) HTN (hypertension) Onset Date: 01/08/18 Current Visit: Yes Status: Chronic Qualifiers: Hypertension type: essential hypertension Qualified Code(s): I10 - Essential (primary) hypertension (4) Anxiety Onset Date: 01/08/18 Current Visit: Yes Status: Chronic (5) Hyperlipidemia Onset Date: 01/08/18 Current Visit: Yes Status: Chronic Qualifiers: Hyperlipidemia type: mixed hyperlipidemia Qualified Code(s): E78.2 - Mixed hyperlipidemia (6) Morbid obesity Onset Date: 01/08/18 Current Visit: Yes Status: Chronic (7) Tobacco abuse Onset Date: 01/08/18 Current Visit: Yes Status: Chronic (8) Pulmonary embolism Onset Date: 01/08/18 Current Visit: Yes Status: Acute Qualifiers: Pulmonary embolism type: other Chronicity: chronic Acute cor pulmonale presence: without acute cor pulmonale Qualified Code(s): I27.82 - Chronic pulmonary embolism - Disposition Disposition: ROUTINE DISCHARGE Condition: GOOD Patient Discharge Instructions: please f.u with PCP in 1 to 2 week post discharge. No new medication Diet: Regular Activity: Ad marco a
--- NOTE | 2018-01-08 12:44 | TREADPHA ---
DX: CHEST PAIN Date of Study: 01/08/2018 Ht: 6 0 Wt: 314 lb 0 oz Consulting Physician: JESSICA MEDICATIONS: TYLENOL, NORVASC, LOTENSIN, COREG, CATAPRES, PROZAC, LOPID, NOVOLIN-R, ZOFRAN, XARELTO, ULTRAM. HISTORY: 47 YEAR OLD MALE WITH COMPAINTS OF CHEST PAIN. MEDICAL HISTORY OF HPERTENSION, DIABETES MELLITUS, GERD AND SLEEP APNEA. PHYSICIAL EXAMINATION: RESTING B.P.: 139/83 RESTING H.R.: 58 RESTING EKG: NORMAL PROTOCOL: LEXISCAN EXERCISE TIME: 3:30 B.P. AT PEAK STRESS: 132/88 IMPRESSION: LEXISCAN INJECTED. CARDIOLITE INJECTED PER PROTOCOL. SEE NUCLEAR MEDICINE REPORT. NO CHEST PAIN. PREMATURE VENTRICULAR COMPLEXES NOTEDTHROUGHOUT TEST. NO VENTRICULAR TACHYCARDIA. NO SUPRAVENTRICULAR TACHYCARDIA.
--- NOTE | 2018-01-08 15:07 | ECHO ---
HEIGHT: 6 ft 0 in WEIGHT: 314 lb 0 oz DATE OF STUDY: 01/08/[address]: Eloina Garnett MD 2-DIMENSIONAL: YES M.MODE: YES DOPPLER: YES COLOR FLOW: YES TDS: NO PORTABLE: NO DEFINITY: NO BUBBLE STUDY: NO DIAGNOSIS: ACS CARDIAC HISTORY: CATHERIZATION: NO SURGERY: NO PROSTHETIC VALVE: NO PACEMAKER: NO MEASUREMENTS (cm) DIASTOLIC (NORMALS) SYSTOLIC (NORMALS) IVSd 1.3 (0.6-1.2) LA Diam 4.9 (1.9-4.0) LVEF 55% LVIDd 4.7 (3.5-5.7) LVIDs 3.4 (2.0-3.5) %FS 28% LVPWd 1.4 (0.6-1.2) Ao Diam 3.0 (2.0-3.7) 2 DIMENSIONAL ASSESSMENT: RIGHT ATRIUM: NORMAL LEFT ATRIUM: DILATED RIGHT VENTRICLE: NORMAL LEFT VENTRICLE: LEFT VENTRICULAR HYPERTROPHY, CONCENTRIC TRICUSPID VALVE: NORMAL MITRAL VALVE: NORMAL PULMONIC VALVE: NORMAL AORTIC VALVE: NORMAL PERICARDIAL EFFUSION: NONE AORTIC ROOT: NORMAL LEFT VENTRICULAR WALL MOTION: NORMAL DOPPLER/COLOR FLOW: MILD MITRAL REGURGITATION. TRACE REGURGITATION. NORMAL RIGHT VENTRICULAR SYSTOLIC PRESSURE. COMMENTS: NORMAL LEFT VENTRICULAR EJECTION FRACTION. LEFT VENTRICULAR HYPERTROPHY. DILATED LEFT ATRIUM. MILD MITRAL REGURGITATION. TRACE REGURGITATION. TECHNOLOGIST: Barbara SCHUMACHER
[2018-01-09] MEDS ORDERED: FLUOXETINE 20 MG CAP PO SCH (09:00)
== END 2018-01-08 16:18 | disposition home or self-care (01) ==
LOC: ER 08:09 → ERHOLD 10:13 → 2ND 11:25
PROVIDERS: ADMIT Family Medicine; ATTEND Family Medicine
DX: R07.9 Chest pain, unspecified (principal); Z21 Asymptomatic human immunodeficiency virus [HIV] infection status; I10 Essential (primary) hypertension; F41.9 Anxiety disorder, unspecified; E78.5 Hyperlipidemia, unspecified; E66.01 Morbid (severe) obesity due to excess calories; Z68.41 Body mass index [BMI] 40.0-44.9, adult; F17.210 Nicotine dependence, cigarettes, uncomplicated; Z86.711 Personal history of pulmonary embolism
CPT/HCPCS: 36415; 71045; 78452; 80048; 80061; 80076; 81003; 82553; 82962; 83735; 83880; 84484; 85025; 85610; 85730; 93005; 93017; 93306; 96374; 96375; 99285; A9500; G0378; J2405; J2785